=== PATIENT | female | born 1965 | race Caucasian/White ===

== ENCOUNTER 2017-11-01 13:07 | Emergency (ER) | payer OTHER ==
[~2017-11-01] VITALS: Ht 170.2 cm; Wt 92.5 kg
[~2017-11-01 13:07] MED LIST: ALBU.083IS INH; ALBU4 PO; ALBU90OI INH; AMLO5 PO; ASPI81CH PO; ATOR20 PO; AZIT250 PO; CEPH500 PO; CRUTCH3 USE; CYCL10 PO; FLUO10 PO; GABA300 PO; HYDACE10B PO; HYDACE5 PO; HYDR1TAB94 PO; IBUP800 PO; LEVFLO500 PO; LEVSOD200 PO; LEVSOD50 PO; MAXALT MLT 10 MG; METF500 PO; METPRE4DP PO; Maxalt Mlt10 MG PO; NAPR500 PO; NICO21TP TOP; Norco 10-325 T1 EACH PO; OXYACE5T PO; PRED20 PO; PROCODE120 PO; SALS500 PO; TIROSINT50 MCG PO; TRAZ50 PO
[2017-11-01] MEDS ORDERED: Robaxin500 MG PO (13:41)
== END 2017-11-01 13:51 | disposition home or self-care (01) ==
LOC: ER 13:07
DX: T14.90XA Injury, unspecified, initial encounter (principal); M54.6 Pain in thoracic spine; M54.2 Cervicalgia; J44.9 Chronic obstructive pulmonary disease, unspecified; F17.200 Nicotine dependence, unspecified, uncomplicated; Z88.1 Allergy status to other antibiotic agents; Z79.899 Other long term (current) drug therapy; Z79.82 Long term (current) use of aspirin; Z79.84 Long term (current) use of oral hypoglycemic drugs; V43.52XA Car driver injured in collision with other type car in traffic accident, initial encounter; Y92.481 Parking lot as the place of occurrence of the external cause
CPT/HCPCS: 99283

== ENCOUNTER 2017-12-11 18:38 | Emergency (ER) | payer OTHER ==
[~2017-12-11] VITALS: Ht 180.3 cm; Wt 93.0 kg
[~2017-12-11 18:38] MED LIST changes: +Robaxin500 MG PO
[2017-12-11] MEDS ORDERED: NAPR550 PO (20:52)
== END 2017-12-11 21:03 | disposition home or self-care (01) ==
LOC: ER 18:38
DX: G56.01 Carpal tunnel syndrome, right upper limb (principal); J44.9 Chronic obstructive pulmonary disease, unspecified; J45.909 Unspecified asthma, uncomplicated; E03.9 Hypothyroidism, unspecified; F17.210 Nicotine dependence, cigarettes, uncomplicated
CPT/HCPCS: 29125; 93971; 99284

== ENCOUNTER 2018-02-02 21:25 | Emergency (ER) | payer OTHER ==
[~2018-02-02] VITALS: Ht 175.3 cm; Wt 93.0 kg
[~2018-02-02 21:25] MED LIST changes: +NAPR550 PO
== END 2018-02-03 01:00 | disposition left against medical advice (07) ==
LOC: ER 21:25
DX: Z53.21 Procedure and treatment not carried out due to patient leaving prior to being seen by health care provider (principal)
CPT/HCPCS: 72220; 99283

== ENCOUNTER 2018-04-17 12:00 | Emergency (ER) | payer OTHER ==
[~2018-04-17] VITALS: Ht 172.7 cm; Wt 99.8 kg
[2018-04-17] MEDS ORDERED: IBUPROFEN200 MG PO (12:27)
[2018-04-17] MEDS ORDERED: TYLENOL/CODEINE PO (12:27)
[2018-04-17 12:48] LABS: BASOPHILS ABSOLUTE AUTO 0.06 K/mm3 (0.00-0.23); BASOPHILS PERCENT AUTO 1 % (0-2); EOSINOPHILS ABSOLUTE AUTO 0.22 K/mm3 (0.00-0.68); EOSINOPHILS PERCENT AUTO 2 % (0-6); Hematocrit 42.3 % (33.0-51.0); Hemoglobin 14.4 g/dL (11.5-16.0); IMMATURE GRAN ABSOLUTE AUTO 0.07 K/mm3 (0.00-0.10); IMMATURE GRAN PERCENT AUTO 1 % (0-1); LYMPHOCYTES ABSOLUTE AUTO 3.19 K/mm3 (0.84-5.20); LYMPHOCYTES PERCENT AUTO 28 % (21-46); MONOCYTES ABSOLUTE AUTO 0.62 K/mm3 (0.16-1.47); MONOCYTES PERCENT AUTO 5 % (4-13); Mean Corpuscular Volume 91 fL (80-100); Mean Platelet Volume 9.2 fL (9.1-12.4); NEUTROPHILS ABSOLUTE AUTO 7.25 K/mm3 (1.96-9.15); NEUTROPHILS PERCENT AUTO 64 % (41-73); Platelet Count 263 K/mm3 (150-400); RDW Coefficient Variation 13.6 % (11.7-14.2); RDW Standard Deviation 45.8 fL (35.1-46.3); Red Blood Cell Count 4.65 M/mm3 (3.80-5.20); White Blood Cell Count 11.41 K/mm3 (4.00-11.30)
[2018-04-17 13:09] LABS: Alanine Aminotransfer (ALT/SGP 29 U/L (12-78); Albumin, Blood 4.1 g/dL (3.4-5.0); Alk Phos 78 U/L (50-136); Anion Gap 9 mmol/L (6-16); Aspartate Aminotrans (AST/SGOT 15 U/L (12-37); Bilirubin, Total 0.4 mg/dL (0.1-1.0); Blood Urea Nitrogen 7 mg/dL (8-24); Bun/Creatinine Ratio 10.8 (12.0-20.0); CO2, Blood 25 mmol/L (21-32); Calcium, Blood 8.9 mg/dL (8.5-10.1); Chloride, Blood 106 mmol/L (98-108); Creatinine, Blood 0.65 mg/dL (0.40-1.00); Globulin, Blood 4.3 g/dL (2.2-4.0); Glomerular Filtration Rate >60 (60-); Glucose, Blood 82 mg/dL (70-99); Potassium, Blood 3.9 mmol/L (3.5-5.5); Sodium, Blood 140 mmol/L (136-145); Total Protein, Blood 8.4 g/dL (6.4-8.2); Troponin I <0.015 ng/mL (0.000-0.040)
[2018-04-17 13:35] LABS: Source, Urine Catheter
[2018-04-17 14:01] LABS: Bilirubin, Urine Neg (Neg); Blood, Urine 1+ (Neg); Glucose Qualitative, Urine Neg (Neg); Ketones, Urine Neg (Neg); Leukocyte Esterase, Urine Neg (Neg); Nitrite, Urine Neg (Neg); Protein, Urine Neg (Neg); Urobilinogen, Urine NORM (Normal)
[2018-04-17 14:19] LABS: Appearance, Urine Clear (Clear); Color, Urine Yellow (P-Yellow)
[2018-04-17 14:22] LABS: Bacteria Not Seen /hpf; Red Blood Cells, Urine Not Seen /hpf (0-2); Squamous Epithelial Cells Few /hpf (Few); White Blood Cells, Urine Not Seen /hpf (0-5)
== END 2018-04-17 15:21 | disposition home or self-care (01) ==
LOC: ER 12:00
PROVIDERS: Emergency Medicine
DX: R53.1 Weakness (principal); J44.9 Chronic obstructive pulmonary disease, unspecified; F17.210 Nicotine dependence, cigarettes, uncomplicated; Z88.1 Allergy status to other antibiotic agents
CPT/HCPCS: 36415; 70450; 71046; 80053; 81001; 84443; 84484; 85025; 93005; 93010; 99285-25

== ENCOUNTER 2019-02-19 12:52 | Day surgery (SDC) | payer OTHER ==
[~2019-02-19] VITALS: Ht 170.2 cm; Wt 95.3 kg
[~2019-02-19 12:52] MED LIST changes: +IBUPROFEN200 MG PO; +TYLENOL/CODEINE PO
[2019-02-19] MEDS ORDERED: TRAZ50 PO (13:56)
[2019-02-19] MEDS ORDERED: Ventolin/Prove6.7 GM INH (13:56)
[2019-02-19] MEDS ORDERED: LEVSOD75 PO (13:56)
[2019-02-19] MEDS ORDERED: Norco 5-325 Ta1 EACH PO (13:57)
[2019-02-19] MEDS ORDERED: NAPR550 PO (13:58)
[2019-02-19] MEDS ORDERED: Voltaren100 GM TOP (13:58)
[2019-02-19] MEDS ORDERED: CLON.1 PO (13:58)
[2019-02-19] MEDS ORDERED: RIZATRIPTAN10 MG SL (13:59)
--- NOTE | 2019-02-19 14:31 | NUR ---
02/19/19 1431 Stacy Gamble ASSISTED PT TO RESTROOM
== END 2019-02-19 15:37 | disposition home or self-care (01) ==
LOC: ORSCSDS 12:52
PROVIDERS: Internal Medicine Gastroenterology
PROC: 0DB18ZX Excision of Upper Esophagus, Via Natural or Artificial Opening Endoscopic, Diagnostic (ICD-10-PCS; principal; 2019-02-19 14:15)
PROC: 0DB38ZX Excision of Lower Esophagus, Via Natural or Artificial Opening Endoscopic, Diagnostic (ICD-10-PCS; principal; 2019-02-19 14:15)
PROC: 0D757ZZ Dilation of Esophagus, Via Natural or Artificial Opening (ICD-10-PCS; principal; 2019-02-19 14:15)
DX: R13.10 Dysphagia, unspecified (principal); E03.9 Hypothyroidism, unspecified; J45.909 Unspecified asthma, uncomplicated; I10 Essential (primary) hypertension; M79.7 Fibromyalgia; F17.210 Nicotine dependence, cigarettes, uncomplicated; Z79.899 Other long term (current) drug therapy
CPT/HCPCS: 88305; J2704; J7120

== ENCOUNTER 2019-02-27 11:37 | Day surgery (SDC) | payer OTHER ==
[~2019-02-27] VITALS: Ht 170.2 cm; Wt 98.9 kg
[~2019-02-27 11:37] MED LIST changes: +CLON.1 PO; +LEVSOD75 PO; +Norco 5-325 Ta1 EACH PO; +RIZATRIPTAN10 MG SL; +Ventolin/Prove6.7 GM INH; +Voltaren100 GM TOP
== END 2019-02-27 14:44 | disposition home or self-care (01) ==
LOC: ORSCSDS 11:37
PROVIDERS: Internal Medicine Gastroenterology
PROC: 0DBN8ZX Excision of Sigmoid Colon, Via Natural or Artificial Opening Endoscopic, Diagnostic (ICD-10-PCS; principal; 2019-02-27 12:45)
PROC: 0DBK8ZX Excision of Ascending Colon, Via Natural or Artificial Opening Endoscopic, Diagnostic (ICD-10-PCS; principal; 2019-02-27 12:45)
PROC: 0DBP8ZX Excision of Rectum, Via Natural or Artificial Opening Endoscopic, Diagnostic (ICD-10-PCS; principal; 2019-02-27 12:45)
DX: Z12.11 Encounter for screening for malignant neoplasm of colon (principal); D12.2 Benign neoplasm of ascending colon; K63.5 Polyp of colon; K62.1 Rectal polyp; K64.8 Other hemorrhoids; I10 Essential (primary) hypertension; J45.909 Unspecified asthma, uncomplicated; E03.9 Hypothyroidism, unspecified; F17.210 Nicotine dependence, cigarettes, uncomplicated; Z79.899 Other long term (current) drug therapy
CPT/HCPCS: 88305; J0461; J2405; J2704; J7120

== ENCOUNTER 2019-03-24 09:40 | Day surgery (SDC) | payer OTHER ==
[2019-03-30 13:21] LABS: Performing Lab VERACYTE; Result SEE PATHOTH RESULTS; Test Name FNA
== END 2019-03-24 23:35 | disposition home or self-care (01) ==
LOC: US 09:40
PROVIDERS: Internal Medicine
DX: E04.1 Nontoxic single thyroid nodule (principal)
CPT/HCPCS: 10005

== ENCOUNTER → 2022-02-16 | Outpatient (CLI) | payer OTHER | END | disposition home or self-care (01) | LOC: LAB 12:00 → LAB SHORT 12:00 | DX: M25.561 Pain in right knee (principal) | CPT/HCPCS: 87070; 87075; 87205 ==

== ENCOUNTER 2022-02-22 11:48 | Emergency (ER) | payer OTHER ==
[~2022-02-22] VITALS: Ht 170.2 cm; Wt 95.2 kg
[2022-02-22 13:06] LABS: Hematocrit 43.4 % (33.0-51.0); Hemoglobin 14.5 g/dL (11.5-16.0); Mean Corpuscular HGB 31.2 pg (26.0-34.0); Mean Corpuscular HGB Conc 33.4 g/dL (31.5-36.5); Mean Corpuscular Volume 93 fL (80-100); Platelet Count 296 K/mm3 (150-400); RDW Coefficient Variation 14.2 % (11.7-14.2); Red Blood Cell Count 4.65 M/mm3 (3.80-5.20); White Blood Cell Count 15.35 K/mm3 (4.00-11.30)
[2022-02-22 13:26] LABS: Albumin, Blood 3.7 g/dL (3.4-5.0); Albumin/Globulin Ratio 1.1 (0.8-1.8); Bilirubin, Total 0.3 mg/dL (0.1-1.0); Bun/Creatinine Ratio 33.7 (12.0-20.0); Calcium, Blood 9.4 mg/dL (8.5-10.1); Creatinine, Blood 0.62 mg/dL (0.40-1.00); Globulin, Blood 3.3 g/dL (2.2-4.0)
[2022-02-22 15:56] LABS: BASOPHILS PERCENT MAN 2 % (0-2); EOSINOPHILS PERCENT MAN 2 % (0-6); LYMPHOCYTES % ATYPICAL MANUAL 3 % (0-0); LYMPHOCYTES PERCENT MAN 40 % (21-46); MONOCYTES ABSOLUTE MAN 1.38 K/mm3 (0.16-1.47); MONOCYTES PERCENT MAN 9 % (4-13); MYELOCYTE ABSOLUTE MAN 0.15 K/mm3 (0.00-0.00); MYELOCYTE PERCENT MAN 1 % (0-0); SEG NEUTROPHILS PERCENT MAN 43 % (41-73); TOTAL CELLS COUNTED 100
== END 2022-02-22 15:15 | disposition home or self-care (01) ==
LOC: ER 11:48
PROVIDERS: Physician Assistant
DX: R07.89 Other chest pain (principal); R42 Dizziness and giddiness; R20.2 Paresthesia of skin; J44.9 Chronic obstructive pulmonary disease, unspecified; Z79.899 Other long term (current) drug therapy
CPT/HCPCS: 36415; 71046; 80053; 83690; 84484; 85025; 93005; 93010; 99284-25

== ENCOUNTER 2022-04-15 14:58 | Emergency (ER) | payer OTHER ==
[~2022-04-15] VITALS: Ht 170.2 cm; Wt 95.2 kg
== END 2022-04-15 18:40 | disposition home or self-care (01) ==
LOC: ER 14:58
DX: M25.461 Effusion, right knee (principal); J44.9 Chronic obstructive pulmonary disease, unspecified; E03.9 Hypothyroidism, unspecified; F17.210 Nicotine dependence, cigarettes, uncomplicated; Z79.899 Other long term (current) drug therapy; Z88.8 Allergy status to other drugs, medicaments and biological substances
CPT/HCPCS: 93971

== ENCOUNTER → 2022-04-15 | Outpatient (CLI) | payer OTHER ==
[2022-04-15 13:42] LABS: BASOPHILS ABSOLUTE AUTO 0.08 K/mm3 (0.00-0.23); BASOPHILS PERCENT AUTO 1 % (0-2); EOSINOPHILS ABSOLUTE AUTO 0.28 K/mm3 (0.00-0.68); EOSINOPHILS PERCENT AUTO 2 % (0-6); Hematocrit 46.4 % (33.0-51.0); Hemoglobin 15.6 g/dL (11.5-16.0); IMMATURE GRAN ABSOLUTE AUTO 0.05 K/mm3 (0.00-0.10); IMMATURE GRAN PERCENT AUTO 0 % (0-1); LYMPHOCYTES ABSOLUTE AUTO 3.11 K/mm3 (0.84-5.20); LYMPHOCYTES PERCENT AUTO 27 % (21-46); MONOCYTES ABSOLUTE AUTO 0.69 K/mm3 (0.16-1.47); MONOCYTES PERCENT AUTO 6 % (4-13); Mean Corpuscular HGB 31.2 pg (26.0-34.0); Mean Corpuscular HGB Conc 33.6 g/dL (31.5-36.5); Mean Corpuscular Volume 93 fL (80-100); Mean Platelet Volume 9.9 fL (9.1-12.4); NEUTROPHILS ABSOLUTE AUTO 7.25 K/mm3 (1.96-9.15); NEUTROPHILS PERCENT AUTO 63 % (41-73); Platelet Count 276 K/mm3 (150-400); RDW Standard Deviation 48.4 fL (35.1-46.3); White Blood Cell Count 11.46 K/mm3 (4.00-11.30)
== END ==
LOC: LAB SHORT 13:10
PROVIDERS: Physician Assistant
DX: M25.561 Pain in right knee (principal)
CPT/HCPCS: 85025; 85379

== ENCOUNTER 2023-05-02 19:21 | Emergency (ER) | payer OTHER ==
[~2023-05-02] VITALS: Ht 170.2 cm; Wt 95.2 kg
[2023-05-02 20:06] LABS: BASOPHILS ABSOLUTE AUTO 0.03 K/mm3 (0.00-0.23); BASOPHILS PERCENT AUTO 0 % (0-2); EOSINOPHILS ABSOLUTE AUTO 0.12 K/mm3 (0.00-0.68); EOSINOPHILS PERCENT AUTO 1 % (0-6); Hematocrit 44.7 % (33.0-51.0); Hemoglobin 14.9 g/dL (11.5-16.0); IMMATURE GRAN ABSOLUTE AUTO 0.04 K/mm3 (0.00-0.10); IMMATURE GRAN PERCENT AUTO 0 % (0-1); LYMPHOCYTES ABSOLUTE AUTO 1.41 K/mm3 (0.84-5.20); LYMPHOCYTES PERCENT AUTO 15 % (21-46); MONOCYTES ABSOLUTE AUTO 0.84 K/mm3 (0.16-1.47); MONOCYTES PERCENT AUTO 9 % (4-13); Mean Corpuscular HGB 30.5 pg (26.0-34.0); Mean Corpuscular HGB Conc 33.3 g/dL (31.5-36.5); Mean Corpuscular Volume 92 fL (80-100); Mean Platelet Volume 9.8 fL (9.1-12.4); NEUTROPHILS ABSOLUTE AUTO 6.72 K/mm3 (1.96-9.15); NEUTROPHILS PERCENT AUTO 73 % (41-73); Platelet Count 199 K/mm3 (150-400); RDW Coefficient Variation 14.6 % (11.7-14.2); RDW Standard Deviation 49.6 fL (35.1-46.3); Red Blood Cell Count 4.88 M/mm3 (3.80-5.20); White Blood Cell Count 9.16 K/mm3 (4.00-11.30)
[2023-05-02 20:20] LABS: Bun/Creatinine Ratio 10.1 (12.0-20.0); Calcium, Blood 9.3 mg/dL (8.5-10.1); Creatinine, Blood 0.59 mg/dL (0.40-1.00); Potassium, Blood 3.7 mmol/L (3.5-5.5)
[2023-05-02 21:26] LABS: Adenovirus Not Detected (NOT DETECT); Bordetella pertussis Not Detected (NOT DETECT); Chlamydophila pneumoniae Not Detected (NOT DETECT); Coronavirus 229E Not Detected (NOT DETECT); Coronavirus HKU1 Not Detected (NOT DETECT); Coronavirus NL63 Not Detected (NOT DETECT); Coronavirus OC43 Not Detected (NOT DETECT); Human Metapneumovirus Not Detected (NOT DETECT); Human Rhinovirus/Enterovirus Detected (NOT DETECT); Influenza A/2009-H1 Not Detected (NOT DETECT); Influenza A/H1 Not Detected (NOT DETECT); Influenza A/H3 Not Detected (NOT DETECT); Influenza B Not Detected (NOT DETECT); Mycoplasma pneumoniae Not Detected (NOT DETECT); Parainfluenza Virus 1 Not Detected (NOT DETECT); Parainfluenza Virus 2 Not Detected (NOT DETECT); Parainfluenza Virus 3 Not Detected (NOT DETECT); Parainfluenza Virus 4 Not Detected (NOT DETECT); Respiratory Syncytial Virus Not Detected (NOT DETECT); SARS-Cov-2 (COVID-19), BioFire Not Detected (NOT DETECT)
[2023-05-02] MEDS ORDERED: BENZ100A PO (22:42)
[2023-05-02] MEDS ORDERED: PRED20 PO (22:42)
[2023-05-03 00:30] VITALS: BP 103/66
== END 2023-05-03 00:32 | disposition left against medical advice (07) ==
LOC: ER 19:21
PROVIDERS: Emergency Medicine
DX: J44.1 Chronic obstructive pulmonary disease with (acute) exacerbation (principal); J96.91 Respiratory failure, unspecified with hypoxia; J06.9 Acute upper respiratory infection, unspecified; B97.89 Other viral agents as the cause of diseases classified elsewhere; E03.9 Hypothyroidism, unspecified; F17.210 Nicotine dependence, cigarettes, uncomplicated
CPT/HCPCS: 0202U; 36415; 71045; 80048; 83605; 85025; 94644; 94664; 99284-25